=== PATIENT | male | born 1960 | race African-American/Black ===

== ENCOUNTER 2020-09-09 12:22 | Outpatient (RCR) | payer OTHER, SELFPAY ==
--- NOTE | 2020-09-09 13:42 | PCPTNOTE ---
Patient:Rufino Joy Date of :1960 Thank you [facility]. The patient has been evaluated for wheelchair seating and recommendations have been made, with assistance of the DME provider present. The findings have been scanned into the patient's EMR with wheelchair assessment given to DME provider. Group 2 power wheelchair was recommended to meet Mr. Joy medical and mobility needs. Please review, sign, date and return this recognition of care provided. I agree with and certify that the following plan for DME equipment is medically necessary.
== END 2020-09-10 10:20 | disposition home or self-care (01) ==
LOC: ANHPT 12:22
PROVIDERS: PCP Family Medicine; Visit Provider Family Medicine
DX: Z74.09 Other reduced mobility (principal)
CPT/HCPCS: 97163